=== PATIENT | female | born 1945 | race African-American/Black ===

== ENCOUNTER 2017-09-02 23:21 | Emergency (ER) | payer OTHER ==
[~2017-09-02] VITALS: Ht 165.1 cm; Wt 132.6 kg
[2017-09-03] MEDS ORDERED: HYDROCHLOROTHIA25 MG PO (00:57)
[2017-09-03] MEDS ORDERED: DIOVAN160 MG PO (00:57)
== END 2017-09-03 00:10 | disposition home or self-care (01) ==
LOC: EDBD 23:21 → FSED 23:21
DX: R50.9 Fever, unspecified (principal); R05 Cough; J20.9 Acute bronchitis, unspecified
CPT/HCPCS: 99282